=== PATIENT | male | born 1955 | race African-American/Black ===

== ENCOUNTER → 2020-06-22 | Outpatient (CLI) | payer OTHER ==
[~2020-06-22] MED LIST: ASPIRIN325 PO; CRESTOR40 MG PO; DAILY MULTIPLE1 EACH PO; FISH OIL 1,2001 EAC3 PO; FLONASE 0.05%50 MCG NARES; LOTREL 10-20 M1 EACH PO; NAPROSYN500 M1 PO; NEURONTIN300 MG PO; OMEPRAZOLE40 MG PO; VITAMIN C1000 MG PO; VITAMIN D3125 MC1 PO; ZYRTEC10 M5 PO
== END ==
LOC: LAB 07:33
PROVIDERS: ATTEND Surgery
DX: Z01.812 Encounter for preprocedural laboratory examination (principal); Z20.828 Contact with and (suspected) exposure to other viral communicable diseases

== ENCOUNTER → 2021-03-07 | Outpatient (CLI) | payer OTHER ==
[~2021-03-07] MED LIST changes: +CALTRATE-600 W1 EACH PO; +COLACE 100 MG100 MG PO; +HYDROCODON-ACE1 EAC7 PO; +MIRALAX17 GM PO
== END ==
LOC: SJCVC 09:54
PROVIDERS: ATTEND Nuclear Medicine Nuclear Cardiology
DX: J98.59 Other diseases of mediastinum, not elsewhere classified (principal); E78.00 Pure hypercholesterolemia, unspecified; E07.9 Disorder of thyroid, unspecified; I10 Essential (primary) hypertension; E78.5 Hyperlipidemia, unspecified; Z87.891 Personal history of nicotine dependence; Z72.89 Other problems related to lifestyle; Z79.899 Other long term (current) drug therapy; Z87.442 Personal history of urinary calculi

== ENCOUNTER → 2021-03-13 | Outpatient (CLI) | payer OTHER ==
[~2021-03-13] VITALS: Ht 175.3 cm; Wt 104.8 kg
[~2021-03-13] MED LIST changes: +LEVO-T50 MCG PO
[2021-03-13 07:27] VITALS: BP 138/87
[2021-03-13 07:31] LABS: HEMATOCRIT 41.8 % (42.0-52.0); HEMOGLOBIN 13.6 gm/dL (14.0-18.0); MCH 27.9 pg (26.0-34.0); MCHC 32.4 g/dL (28.0-37.0); MCV 86.1 fL (80.0-100.0); RBC 4.86 mil/uL (4.50-6.00); WBC 4.3 thou/uL (4.0-11.0)
[2021-03-13 07:40] LABS: CALCIUM 8.4 mg/dL (8.5-10.1); CREATININE 1.4 mg/dL (0.7-1.3); POTASSIUM 3.5 mmol/L (3.5-5.1)
== END | disposition home or self-care (01) ==
LOC: CATH 06:46
PROVIDERS: ATTEND Nuclear Medicine Nuclear Cardiology
DX: E04.9 Nontoxic goiter, unspecified (principal); I70.90 Unspecified atherosclerosis; I70.1 Atherosclerosis of renal artery; M79.604 Pain in right leg; M79.605 Pain in left leg; I10 Essential (primary) hypertension; E78.00 Pure hypercholesterolemia, unspecified; K21.9 Gastro-esophageal reflux disease without esophagitis; E78.5 Hyperlipidemia, unspecified; Z98.890 Other specified postprocedural states; Z79.899 Other long term (current) drug therapy; Z87.891 Personal history of nicotine dependence

== ENCOUNTER → 2021-08-22 | Outpatient (CLI) | payer OTHER ==
[2021-08-22 10:02] LABS: CREATININE 1.3 mg/dL (0.7-1.3)
== END ==
LOC: CAT 08-10 10:50
PROVIDERS: ATTEND Nuclear Medicine Nuclear Cardiology
DX: J98.59 Other diseases of mediastinum, not elsewhere classified (principal); I25.10 Atherosclerotic heart disease of native coronary artery without angina pectoris; M51.34 Other intervertebral disc degeneration, thoracic region; E04.9 Nontoxic goiter, unspecified